=== PATIENT | male | born 1970 | race Caucasian/White ===

== ENCOUNTER 2017-09-03 08:27 | Emergency (ER) | payer BC, OTHER ==
[~2017-09-03] VITALS: Ht 203.2 cm; Wt 109.0 kg
[~2017-09-03 08:27] MED LIST: CYCL-36 PO; DIOV160T60 PO; LORT7.5T3 PO; PRED20 PO; PRIN5TAB PO
[2017-09-03 08:28] VITALS: BP 135/67; PULSE 94; RESP 18; TEMP 97.9; O2SAT 99
--- NOTE | 2017-09-03 09:48 | PD ---
HPI Chief Complaint: General Weakness Time Seen by Provider: 09:17 Travel History International Travel<30 days: No Contact w/Intl Traveler<30days: No Traveled to known affect area: No History of Present Illness HPI [id number] male, with history of thyroid disease, presents to the emergency Department with complaint of generalized weakness, difficulty sleeping, decreased appetite, confusion, decreased focus for approximately 1 month. Also notes a metal taste in his mouth for the part 3 days. He has followed up with his primary care provider, Dr. Bellamy, in regards to these complaints, and in the past 3-4 weeks he has had blood work, a 24-hour urine with increased protein and iodine per the patient, and has had his thyroid nodule ultrasound and drained. Per the patient ultrasound of his thyroid said that it was markedly enlarged. He has had an ultrasound of his kidney and per the patient says it looks good other than his kidney is leaking and he was started on lisinopril 3 days ago. He has seen endocrinology and He has follow-up appointment next month with stem assembler in [place]. He denies headache, vomiting, fevers, chest pain, shortness of breath. Has not taken any medications or tried any treatments to alleviate his symptoms. 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) Headaches: No Hepatitis: No Hiatal Hernia: No Hypertension: No Kidney Stones: No Musculoskeletal: No Neurologic: No Reproductive: No Respiratory: No Myocardial Infarction: No Renal Failure: No Seizures: No Sleep Apnea: No Thyroid Disease: Yes Ulcer: No Past Surgical History Abdominal Surgery: No Cardiac Surgery: No Ear Surgery: No Endocrine Surgery: No Eye Surgery: No Genitourinary Surgery: Yes (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 HEAD: Atraumatic. Normocephalic. No facial droop noted. Tongue midline. [id number] test normal. EYES: Pupils equal and round at 3 mm with brisk reaction. No scleral icterus. No injection or drainage. PERRLA. EOMI. ENT: Mucosa pink and moist. Airway patent. NECK: Trachea midline. No lymphadenopathy. CARDIOVASCULAR: Regular rate and rhythm. No murmur appreciated. RESPIRATORY: No accessory muscle use. Clear to auscultation. Breath sounds equal bilaterally. GASTROINTESTINAL: Abdomen soft, non-tender, nondistended. Hepatic and splenic margins not palpable. Bowel sounds are active 4 quadrants. MUSCULOSKELETAL: No obvious deformities. No clubbing. No cyanosis. No edema. NEUROLOGICAL: Awake and alert. Oriented 3. No obvious cranial nerve deficits. Motor grossly within normal limits. Normal speech. No ataxia. No mid -line drift. No upper or lower extremity drift. Moves all extremities. 5/5 strength to all extremities. PSYCHIATRIC: Appropriate mood and affect; insight and judgment normal. Data Data Last Documented VS Vital Signs Date Time Temp Pulse Resp B/P (MAP) Pulse Ox O2 Delivery O2 Flow Rate FiO2 09/03/17 09:21 18 Room Air 09/03/17 08:28 97.9 94 135/67 (89) 99 Orders Orders Basic Metabolic Panel (Bmp) (09/03/17 09:35) Complete Blood Count With Diff (09/03/17 09:35) Urinalysis - C+S If Indicated (09/03/17 09:35) Thyroid Stimulating Hormone (09/03/17 09:35) Ct Brain W/O Iv Contrast(Rout) (09/03/17 ) Labs Laboratory Tests Test 09/03/17 09:49 09/03/17 09:50 White Blood Count 7.8 TH/MM3 Red Blood Count 5.23 MIL/MM3 Hemoglobin 16.2 GM/DL Hematocrit 46.3 % Mean Corpuscular Volume 88.4 FL Mean Corpuscular Hemoglobin 30.9 PG Mean Corpuscular Hemoglobin Concent 35.0 % Red Cell Distribution Width 12.9 % Platelet Count 227 TH/MM3 Mean Platelet Volume 8.1 FL Neutrophils (%) (Auto) 75.3 % Lymphocytes (%) (Auto) 15.5 % Monocytes (%) (Auto) 8.7 % Eosinophils (%) (Auto) 0.1 % Basophils (%) (Auto) 0.4 % Neutrophils # (Auto) 5.9 TH/MM3 Lymphocytes # (Auto) 1.2 TH/MM3 Monocytes # (Auto) 0.7 TH/MM3 Eosinophils # (Auto) 0.0 TH/MM3 Basophils # (Auto) 0.0 TH/MM3 CBC Comment DIFF FINAL Differential Comment Blood Urea Nitrogen 10 MG/DL Creatinine 1.00 MG/DL Random Glucose 116 MG/DL Calcium Level 9.5 MG/DL Sodium Level 135 MEQ/L Potassium Level 4.3 MEQ/L Chloride Level 102 MEQ/L Carbon Dioxide Level 28.7 MEQ/L Anion Gap 4 MEQ/L Estimat Glomerular Filtration Rate 81 ML/MIN Urine Color YELLOW Urine Turbidity CLEAR Urine pH 7.0 Urine Specific [place] 1.008 Urine Protein 300 mg/dL Urine Glucose (UA) NEG mg/dL Urine Ketones NEG mg/dL Urine Occult Blood NEG Urine Nitrite NEG Urine Bilirubin NEG Urine Urobilinogen LESS THAN 2.0 MG/DL Urine Leukocyte Esterase NEG Urine RBC LESS THAN 1 /hpf Urine WBC LESS THAN 1 /hpf Microscopic Urinalysis Comment CULT NOT INDICATED MDM Medical Decision Making Medical Screen Exam Complete: Yes Emergency Medical Condition: Yes Medical Record Reviewed: Yes Differential Diagnosis Hypothyroidism, hyperthyroidism, thyroid disease, proteinuria, altered mental status Narrative Course 46-year-old male with history of thyroid disease and one kidney with complaints of generalized weakness, difficulty sleeping, decreased appetite, confusion, decreased focus with worsening over the past one month. Neuro exam is unremarkable. Per the patient in the last 3-4 weeks he has had a sonogram of his kidney which showed leaking and was started on lisinopril 3 days ago. Has had a sonogram of his thyroid and was told that it was markedly enlarged and he had one of his nodules drained. He has had blood work which was normal per the patient. He had a 24-hour urine which showed increased protein and iodine, per the patient. He has follow-up with stem assembler next month in [place]. His primary care provider is Dr. Bellamy. I discussed the patient with my attending physician, Dr. Cuadra, and she agrees with my plan of care. CBC, BMP, TSH, urinalysis, CT head ordered. 1028: CT head includes a negative noncontrast CT. CBC, BMP unremarkable. Urinalysis with protein 300, otherwise no signs of infection. TSH 0.975. Discussed findings with Dr. Cuadra, my attending physician, and she agrees with discharge. Patient given a copy of his lab reports and CT report. Instructed patient to follow up with endocrinology and nephrology. Instructed patient to follow up with primary care provider. Patient verbalizes understanding and agreement with treatment plan. Patient is medically cleared and stable for discharge. Discussed reasons to return to the emergency department. Patient agrees with treatment plan. The patients vital signs are stable and the patient is stable for outpatient follow-up and treatment. Patient discharged home, stable and in no acute distress. Diagnosis Primary Impression: Thyroid disease Additional Impressions: Generalized weakness Insomnia Qualified Codes: G47.00 - Insomnia, unspecified Decreased appetite Confusion Referrals: Bicycle Subassembler Diesel Instructor Primary Care Physician Patient Instructions: Fatigue (ED), General Instructions, Insomnia (ED), Weakness (ED) Additional Instructions: Follow-up with stem assembler Follow-up with recorder helper seismograph Follow-up with primary care provider Med/Other Pt SpecificInfo: No Change to Meds, No Meds Exist/No RX given Disposition: 01 DISCHARGE HOME Condition: Stable Sophia Perez Sep 03, 2017 09:48
[2017-09-03 10:10] LABS: BILIRUBIN, URINE NEG (NEG); BLOOD, URINE NEG (NEG); GLUCOSE,URINE NEG (NEG); KETONE, URINE NEG (NEG); NITRITE,URINE NEG (NEG); URINE COLOR YELLOW (YELLW/STRAW); URINE LEUKOCYTE ESTERASE NEG (NEG)
[2017-09-03 10:20] LABS: AUTOMATED NEUTROPHIL # 5.9 TH/MM3 (1.8-7.7); BASOPHIL % 0.4 % (0.0-2.0); EOSINOPHIL % 0.1 % (0.0-4.0); HEMATOCRIT 46.3 % (39.0-51.0); HEMOGLOBIN 16.2 GM/DL (13.0-17.0); LYMPH % 15.5 % (9.0-44.0); LYMPHOCYTE # 1.2 TH/MM3 (1.0-4.8); MEAN CELL VOLUME 88.4 FL (80.0-100.0); MEAN CORPUSCULAR HEMOGLOBIN 30.9 PG (27.0-34.0); MEAN PLATELET VOLUME 8.1 FL (7.0-11.0); MONO % 8.7 % (0.0-8.0); MONOCYTE # 0.7 TH/MM3 (0-0.9); NEUT % 75.3 % (16.0-70.0); PLATELET COUNT 227 TH/MM3 (150-450); RED BLOOD COUNT 5.23 MIL/MM3 (4.50-5.90); RED CELL DISTRIBUTION WIDTH 12.9 % (11.6-17.2); WHITE BLOOD COUNT 7.8 TH/MM3 (4.0-11.0)
[2017-09-03 10:22] LABS: BICARBONATE 28.7 MEQ/L (21.0-32.0); CALCIUM 9.5 MG/DL (8.5-10.1)
--- NOTE | 2017-09-03 10:26 | RADRPT ---
EXAM DATE/TIME: 09/03/2017 10:13 [facility] COMPARISON: No previous studies available for comparison. INDICATIONS : Altered mental status, generalized weakness, difficulty sleeping, loss of appetite. RADIATION DOSE: 40.03 CTDIvol (mGy) MEDICAL HISTORY : Thyroid disease SURGICAL HISTORY : Nephrectomy ENCOUNTER: Initial ACUITY: 2 weeks PAIN SCALE: 0/10 LOCATION: cranial TECHNIQUE: Multiple contiguous axial images were obtained of the head. Using automated exposure control and adj ustment of the mA and/or kV according to patient size, radiation dose was kept as low as reasonably a chievable to obtain optimal diagnostic quality images. DICOM format image data is available electro nically for review and comparison. FINDINGS: CEREBRUM: The ventricles are normal for age. No evidence of midline shift, mass lesion, hemorrhage or acute in farction. No extra-axial fluid collections are seen. POSTERIOR FOSSA: The cerebellum and brainstem are intact. The 4th ventricle is midline. The cerebellopontine angle i s unremarkable. EXTRACRANIAL: The visualized portion of the orbits is intact. SKULL: The calvaria is intact. No evidence of skull fracture. CONCLUSION: 1. Negative noncontrast CT brain. Tj Jain MD on September 03, 2017 at 10:23 Board Certified Radiologist. This report was verified electronically.
== END 2017-09-03 11:05 | disposition home or self-care (01) ==
LOC: NEPD 08:27
DX: E04.1 Nontoxic single thyroid nodule (principal); G47.00 Insomnia, unspecified; R63.0 Anorexia; R41.0 Disorientation, unspecified
CPT/HCPCS: 70450; 80048; 81001; 84443; 85025; 99284